=== PATIENT | female | born 2000 | race Two or more races ===

== ENCOUNTER 2025-04-13 11:24 | Outpatient (AMB) | payer MEDICAID, SELFPAY ==
[2025-04-13 11:46] VITALS: BP 136/97; PULSE 82; RESP 18; TEMP 36.7; O2SAT 98; BMI 30.7
--- NOTE | 2025-04-13 11:46 | OBCLNT_ITS ---
Vital Signs 04/13/25 11:46 Height 1.65 m Height Method Stated Weight 83.688 kg Weight Measurement Method Standing Scale BMI 30.7 BP 136/97 H Blood Pressure Source Automatic Cuff Blood Pressure Location Right Upper Arm Position Sitting Respiration 18 Pulse 82 Pulse Source Monitor Temp 98.0 F Temp Source Temporal Artery Scan Pulse Oximetry (%) 98 Oxygen Delivery Method Room Air Allergies/Home Meds Allergies & Medications Allergies No Known Allergies Allergy (Verified 04/13/25 15:02) Medication Reconciliation Unobtainable 04/13/25 [History Confirmed 04/13/25] Intake Visit Data Collection New Patient or Established: New Patient (never been to [facility]) Reason for Visit:: OBI Seen by Clinical Staff ONLY (RN/MA): No Admitting Counselor Required: No Do You Feel Safe at Home: Yes Authorities Contacted: N/A PCP or OBGYN visit in last 3 months: No Hx Now: Yes Are you currently on any form of Control: No Pain Present Currently: Yes Pain Location: Abdomen Pain Scale Used: Tucker-Ibarra/Numerical Pain scale:: 5 Smoking Status Smoking Status: Never smoker Questionnaires Covid-19 Vaccine Questionnaire Has patient been vacinated for Covid-19 Have you been vacinated for Covid-19: No PHQ-9 PHQ-2 Over the last 2 weeks, how often have you been bothered by any of the following problems? 1. Little interest or pleasure in doing things: not at all 2. Feeling down, depressed, or hopeless: not at all Total score: 0 PHQ-9 3. Trouble falling or staying asleep, or sleeping too much: Not at all 4. Feeling tired or having little energy: Not at all 5. Poor appetite or overeating: Not at all 6. Feeling bad about yourself - or that you are a failure or have let yourself or your family down: Not at all 7. Trouble concentrating on things, such as reading the newspaper or watching television: Not at all 8. Moving or speaking so slowly that other people could have noticed? - Or the opposite - being so fidgety or restless that you have been moving around a lot more than usual: not at all 9. Thoughts that you would be better off or of hurting yourself in some way: Not at all Total score: 0 If you checked off any problems, how difficult have these problems made it for you to do your work, take care of things at home, or get along with other people?: not difficult at all Source: Developed by Drs. Vinicius Kaufman, Deb Head, Dustin Yancey and colleagues, with an educational mamadou from [employer]. Depression screen completed yes Social History Living Situation History Marital Status: Life Partner Lives With: Family Housing: House Tobacco History Smoking Status: Never smoker Second Hand Smoke Exposure: No Alcohol History Alcohol Intake: Never Domestic Abuse History Do You Feel Safe at Home: Yes History of Present Illness HPI Narrative Patient is a [id number] presenting for her first obstetric visit at this clinic. Her estimated due date is November 20, 2025, based on a last menstrual period of February 13, 2025. She has a history of high blood pressure and pre-eclampsia during her previous in 2022, which puts her at high risk for recurrence. Patient initially sought care at [facility] where she was seen by a landscape supervisor. She experienced body pains and underwent a stomach scan. Last week, she had an ultrasound where a heartbeat was reportedly detected. However, she visited an emergency room last month around March 28 due to spotting, where no heartbeat was detected, possibly due to early gestation. Patient reports experiencing spotting but denies any current cramping or significant bleeding. She mentions taking ibuprofen for pain relief, which she has now been advised against. She has been recommended to use Tylenol for pain during . Patient's obstetric history includes a full-term delivery in 2022 at [facility], and she breastfed. She reports having high blood pressure during a recent check-up, necessitating additional monitoring and testing throughout this . Review of systems is positive for body pains and spotting. - Abdomen: Ultrasound examination of the uterus performed. The entire uterus visualized. Inner part of uterus examined. No sac observed within the uterus. Exam General General Appearance: alert, in no apparent distress and healthy appearing Head Head exam: atraumatic Neck Neck exam: Present normal inspection and trachea midline Chest Chest inspection: Present normal inspection and symmetric chest wall rise External exam: Present normal external exam; Absent tenderness Neuro Neurological exam: Present oriented X3 Psych Psychiatric exam: Present normal affect and normal mood Office Procedures OB Clinic LOC & Office Proc's Nursing/Assessment Patient Status: Established Patient OB Clinic Nursing Assessment: Medication Reconciliation, Update PMH in EMR and Vital Signs OB Clinic Coordination of Care: Complex Care and Chronic Disease 1-5, Consent,records obtained, informed consent, Education Simp Pt/Fam and Staff clarify orders Special Needs: Heart tones Established Patient Charge Established Patient Point Assignment: 115 Established Patient Point Charge: EP Level 3 (80-115) Assessment & Plan Diagnosis / Problem List (1) of unknown anatomic location: Status: Acute Plan of Uncertain Viability: - Patient reports last menstrual period on February 13, 2025, with estimated due date of November 20, 2025. - No gestational sac visualized on bedside ultrasound today, despite reported heartbeat last week. - Patient reports spotting. - Order formal ultrasound in radiology department. - Obtain quantitative beta-hCG. - Schedule follow-up appointment to review results and determine next steps. History of Hypertension in : - Patient reports history of hypertension during previous in 2022. - Mentions recent high blood pressure readings at a previous visit. - Include pre-eclampsia panel with initial labs. - Monitor blood pressure and labs monthly throughout . - Educate patient on signs and symptoms of pre-eclampsia. Medication Management: - Advised against using ibuprofen during . - Discontinue ibuprofen. - Recommend acetaminophen for pain relief as needed. - Educate patient on safe medication use during .
== END 2025-04-13 12:04 | disposition home or self-care (01) ==
LOC: HODSOBC 11:24
PROVIDERS: Supervising Provider Obstetrics & Gynecology; Visit Provider Obstetrics & Gynecology
DX: O09.299 Supervision of pregnancy with other poor reproductive or obstetric history, unspecified trimester (principal); O09.899 Supervision of other high risk pregnancies, unspecified trimester; O36.80X0 Pregnancy with inconclusive fetal viability, not applicable or unspecified; Z3A.00 Weeks of gestation of pregnancy not specified; Z87.59 Personal history of other complications of pregnancy, childbirth and the puerperium
CPT/HCPCS: 99213; G0463

== ENCOUNTER 2025-04-22 09:14 | Outpatient (AMB) | payer MEDICAID, SELFPAY ==
[2025-04-22 09:27] VITALS: BP 124/84; PULSE 82; RESP 16; TEMP 36.6; O2SAT 98; BMI 30.8
--- NOTE | 2025-04-22 09:27 | AMB.OBVISIT ---
Vital Signs 04/22/25 09:27 Height 1.65 m Height Method Stated Weight 83.971 kg Weight Measurement Method Standing Scale BMI 30.8 BP 124/84 Blood Pressure Source Automatic Cuff Blood Pressure Location Left Upper Arm Position Sitting Respiration 16 Pulse 82 Pulse Source Monitor Temp 97.8 F Temp Source Oral Pulse Oximetry (%) 98 Oxygen Delivery Method Room Air Allergies/Home Meds Allergies & Medications Allergies No Known Allergies Allergy (Verified 04/22/25 09:28) Medication Reconciliation Unobtainable 04/13/25 [History Confirmed 04/22/25] Intake Visit Data Collection New Patient or Established: Established Patient (seen at [facility] within 3 years) Reason for Visit:: CARE Seen by Clinical Staff ONLY (RN/MA): No Patient Transportation Driver Required: No Do You Feel Safe at Home: Yes Authorities Contacted: N/A PCP or OBGYN visit in last 3 months: Yes Hx Now: Yes Are you currently on any form of Control: No Pain Present Currently: No Pain Scale Used: Tucker-Ibarra/Numerical Pain scale:: 0 Smoking Status Smoking Status: Never smoker Questionnaires Covid-19 Vaccine Questionnaire Has patient been vacinated for Covid-19 Have you been vacinated for Covid-19: Yes PHQ-9 PHQ-2 Over the last 2 weeks, how often have you been bothered by any of the following problems? 1. Little interest or pleasure in doing things: not at all 2. Feeling down, depressed, or hopeless: not at all Total score: 0 PHQ-9 3. Trouble falling or staying asleep, or sleeping too much: Not at all 4. Feeling tired or having little energy: Not at all 5. Poor appetite or overeating: Not at all 6. Feeling bad about yourself - or that you are a failure or have let yourself or your family down: Not at all 7. Trouble concentrating on things, such as reading the newspaper or watching television: Not at all 8. Moving or speaking so slowly that other people could have noticed? - Or the opposite - being so fidgety or restless that you have been moving around a lot more than usual: not at all 9. Thoughts that you would be better off or of hurting yourself in some way: Not at all Total score: 0 Source: Developed by Drs. Vinicius Kaufman, Deb Head, Dustin Yancey and colleagues, with an educational mamadou from [employer]. Depression screen completed yes Social History Living Situation History Lives With: Family Housing: House Tobacco History Smoking Status: Never smoker Second Hand Smoke Exposure: No Alcohol History Alcohol Intake: Never Domestic Abuse History Do You Feel Safe at Home: Yes History of Present Illness HPI Narrative Patient is a 24-year-old 2 para 1 here for follow-up threatened SAB. Patient denies bleeding at this time. She reports she had some spotting once during the and now. Her last period February 13, 2025. Estimated due date November 22, 2025. Patient feels about 10 weeks size. She denies social habits. Denies surgery. Denies chronic illness. History of chronic hypertension. No medication. Review of Systems Review of Systems Systems Reviewed: All systems reviewed, normal except as documented Care CJ Calculator Estimated Delivery Date Method Current WG Current Estimate 11/20/25 LMP (Certain) 9w 5d Results Objective Laboratory: HCG 04/07/25:hc. o+,ABS-, RPR;;NR, RUB iMM, hbsag-,hiv-,hc-, gc/ct-, /, ut-a1C:5.0 Imaging: +fht WITH DOPPLER: 156, OFFICE SONO: 10 WEEK FETUS, + FHT ON SONO, +fm Exam Narrative Physical exam: + fht 150. IUP 10wk General Limitations: no limitations General Appearance: alert, in no apparent distress, comfortable, cooperative, healthy appearing, well developed and well groomed Head Head exam: atraumatic, normocephalic and normal inspection Neck Neck exam: Present normal inspection, full ROM and trachea midline Resp Respiratory exam: Present normal lung sounds bilaterally Card Cardiovascular exam: Present regular rate, normal rhythm and normal heart sounds Abdominal Abdominal exam: Present soft and normal bowel sounds Psych Psychiatric exam: Present normal affect and normal mood Office Procedures OB Clinic LOC & Office Proc's Nursing/Assessment Patient Status: Established Patient OB Clinic Nursing Assessment: Medication Reconciliation, Update PMH in EMR and Vital Signs OB Clinic Coordination of Care: Complex Care and Chronic Disease 1-5, Consent,records obtained, informed consent, Education Simp Pt/Fam, Lab and Imaging orders, Results/Orders obtained and Staff clarify orders Special Needs: Heart tones Established Patient Charge Established Patient Point Assignment: 135 Established Patient Point Charge: EP Level 4 (120-155) Assessment & Plan Diagnosis / Problem List (1) Encounter for supervision of high risk in first trimester, antepartum: Status: Acute Plan NIPT and carrier screen today. Discussed SAB precautions. Schedule M appointment for anatomy scan. Discussed danger signs symptoms and ER precautions and return in 4 weeks for OBI Additional Plan Follow Up: 4 Weeks (obi)
== END 2025-04-22 10:13 | disposition home or self-care (01) ==
LOC: HODSOBC 09:14
PROVIDERS: Supervising Provider Advanced Practice Midwife; Visit Provider Advanced Practice Midwife
DX: O09.891 Supervision of other high risk pregnancies, first trimester (principal); O10.911 Unspecified pre-existing hypertension complicating pregnancy, first trimester; Z3A.10 10 weeks gestation of pregnancy
CPT/HCPCS: 99214; G0463

== ENCOUNTER 2025-05-03 10:25 | Outpatient (AMB) | payer MEDICAID, SELFPAY ==
--- NOTE | 2025-05-03 10:34 | OBCLNT_ITS ---
Vital Signs 05/03/25 10:38 Height 1.65 m Height Method Stated Weight 83.971 kg Weight Measurement Method Standing Scale BMI 30.8 BP 130/89 H Blood Pressure Source Automatic Cuff Blood Pressure Location Left Upper Arm Position Sitting Respiration 16 Pulse 88 Pulse Source Monitor Temp 98.2 F Temp Source Oral Pulse Oximetry (%) 98 Oxygen Delivery Method Room Air Allergies/Home Meds Allergies & Medications Allergies No Known Allergies Allergy (Verified 05/03/25 10:39) Medication Reconciliation Unobtainable 04/13/25 [History Confirmed 05/03/25] Intake Visit Data Collection New Patient or Established: Established Patient (seen at [facility] within 3 years) Reason for Visit:: CARE Seen by Clinical Staff ONLY (RN/MA): No Boiler Shop 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 1. Little interest or pleasure in doing things: not at all 2. Feeling down, depressed, or hopeless: not at all Total score: 0 PHQ-9 3. Trouble falling or staying asleep, or sleeping too much: Not at all 4. Feeling tired or having little energy: Not at all 5. Poor appetite or overeating: Not at all 6. Feeling bad about yourself - or that you are a failure or have let yourself or your family down: Not at all 7. Trouble concentrating on things, such as reading the newspaper or watching television: Not at all 8. Moving or speaking so slowly that other people could have noticed? - Or the opposite - being so fidgety or restless that you have been moving around a lot more than usual: not at all 9. Thoughts that you would be better off or of hurting yourself in some way: Not at all Total score: 0 Source: Developed by Drs. Vinicius Kaufman, Deb Head, Dustin Yancey and colleagues, with an educational mamadou from [employer]. Depression screen completed yes Social History Living Situation History Lives With: Family Housing: House Tobacco History Smoking Status: Never smoker Second Hand Smoke Exposure: No Alcohol History Alcohol Intake: Never Domestic Abuse History Do You Feel Safe at Home: Yes Care OB Visit Log OB Flowsheet Initial Weight: Not Recorded Date -?-?-?-?-?-?-?-?-?-?-?-?- EGA Weight BP Alb Glu CTX Pres Fundal ht FHR Mov Dilation Station Effacement Hx Notes Visit Note 05/03/25 -?-?-?-?-?-?-?-?-?-?-?-?- 11w 2d 83.971 kg 130/89 absent unknown 12 145 absent This is a 24-year-old 2 para 1 for ER follow-up. Patient was seen at [facility] for early vaginal bleeding. She was told she had a subchorionic hemorrhage patient denies any bleeding at this time. The report for ultrasound and visit are still pending. Denies cramps denies leaking fluid. Patient did not get her labs as ordered. NIPT and carrier screen today. Discussed SAB precautions and rest. Schedule appointment at [facility] for anatomy scan. Continue prenatals. Comfort measures for nausea. Return in 4 weeks for recheck CJ Calculator Estimated Delivery Date Method Current WG Current Estimate 11/20/25 LMP (Certain) 11w 2d Notes Visit Date: 05/03/25 Last Updated by: Chiquita Saldana CNM 24 yo . LMP 02/13/25. EDC 11/20/25. OB panel: O+,abs-, rpr;;NR, rub imm, hbsag-,hiv-,hc-, GC/CT-, UT-,UA-, Office Procedures OB Clinic LOC & Office Proc's Nursing/Assessment Patient Status: Established Patient OB Clinic Nursing Assessment: Medication Reconciliation, Update PMH in EMR and Vital Signs OB Clinic Coordination of Care: Complex Care and Chronic Disease 1-5, Consent,records obtained, informed consent, Education Simp Pt/Fam, Lab and Imaging orders, Results/Orders obtained and Staff clarify orders Special Needs: Heart tones Established Patient Charge Established Patient Point Assignment: 135 Established Patient Point Charge: EP Level 4 (120-155) Assessment & Plan Diagnosis / Problem List (1) Encounter for supervision of high risk in first trimester, antepartum: Status: Acute Plan Reviewed OB panel. Schedule NIPT and carrier screen. Discussed SAB precautions. Rest. Increase fluids. Continue prenatals. OB sono pending. Return in 4 weeks OB check Additional Plan Follow Up: 4 Weeks (ob)
[2025-05-03 10:38] VITALS: BP 130/89; PULSE 88; RESP 16; TEMP 36.8; O2SAT 98; BMI 30.8
== END 2025-05-03 11:06 | disposition home or self-care (01) ==
LOC: HODSOBC 10:25
PROVIDERS: Supervising Provider Advanced Practice Midwife; Visit Provider Advanced Practice Midwife
DX: O09.91 Supervision of high risk pregnancy, unspecified, first trimester (principal); Z3A.11 11 weeks gestation of pregnancy
CPT/HCPCS: 99214; G0463

== ENCOUNTER 2025-05-31 08:47 | Outpatient (AMB) | payer MEDICAID, SELFPAY ==
[2025-05-31 09:01] VITALS: BP 131/87; PULSE 18; RESP 92; TEMP 36.6; O2SAT 98; BMI 30.7
--- NOTE | 2025-05-31 09:01 | OBCLNT_ITS ---
Vital Signs 05/31/25 09:01 Height 1.65 m Height Method Stated Weight 83.688 kg Weight Measurement Method Standing Scale BMI 30.7 BP 131/87 H Blood Pressure Source Automatic Cuff Blood Pressure Location Left Upper Arm Position Sitting Respiration 92 H Pulse 18 L Pulse Source Monitor Temp 97.8 F Temp Source Oral Pulse Oximetry (%) 98 Oxygen Delivery Method Room Air Allergies/Home Meds Allergies & Medications Allergies No Known Allergies Allergy (Verified 05/31/25 09:03) Medication Reconciliation Unobtainable 04/13/25 [History Confirmed 05/31/25] Intake Visit Data Collection New Patient or Established: Established Patient (seen at [facility] within 3 years) Reason for Visit:: CARE Seen by Clinical Staff ONLY (RN/MA): No Supervisor Fertilizer Processing Required: No Do You Feel Safe at Home: Yes Authorities Contacted: N/A PCP or OBGYN visit in last 3 months: Yes Hx Now: Yes Are you currently on any form of Control: No Pain Present Currently: Yes Pain Location: Abdomen (LOWER ABDOMEN) Pain Scale Used: Tucker-Ibarra/Numerical Pain scale:: 8 Smoking Status Smoking Status: Never smoker Questionnaires Covid-19 Vaccine Questionnaire Has patient been vacinated for Covid-19 Have you been vacinated for Covid-19: Yes PHQ-9 PHQ-2 Over the last 2 weeks, how often have you been bothered by any of the following problems? 1. Little interest or pleasure in doing things: not at all 2. Feeling down, depressed, or hopeless: not at all Total score: 0 PHQ-9 3. Trouble falling or staying asleep, or sleeping too much: Not at all 4. Feeling tired or having little energy: Not at all 5. Poor appetite or overeating: Not at all 6. Feeling bad about yourself - or that you are a failure or have let yourself or your family down: Not at all 7. Trouble concentrating on things, such as reading the newspaper or watching television: Not at all 8. Moving or speaking so slowly that other people could have noticed? - Or the opposite - being so fidgety or restless that you have been moving around a lot more than usual: not at all 9. Thoughts that you would be better off or of hurting yourself in some way: Not at all Total score: 0 Source: Developed by Drs. Vinicius Kaufman, Deb Head, Dustin Yancey and colleagues, with an educational mamadou from [employer]. Depression screen completed yes Social History Living Situation History Lives With: Family Housing: House Tobacco History Smoking Status: Never smoker Second Hand Smoke Exposure: No Alcohol History Alcohol Intake: Never Domestic Abuse History Do You Feel Safe at Home: Yes Care OB Visit Log OB Flowsheet Initial Weight: Not Recorded Date -?-?-?-?-?-?-?-?-?-?-?-?- EGA Weight BP Alb Glu CTX Pres Fundal ht FHR Mov Dilation Station Effacement Hx Notes Visit Note 05/03/25 -?-?-?-?-?-?-?-?-?-?-?-?- 11w 2d 83.971 kg 130/89 absent unknown 12 145 absent This is a 24-year-old 2 para 1 for ER follow-up. Patient was seen at [facility] for early vaginal bleeding. She was told she had a subchorionic hemorrhage patient denies any bleeding at this time. The report for ultrasound and visit are still pending. Denies cramps denies leaking fluid. Patient did not get her labs as ordered. NIPT and carrier screen today. Discussed SAB precautions and rest. Schedule appointment at [facility] for anatomy scan. Continue prenatals. Comfort measures for nausea. Return in 4 weeks for recheck 05/31/25 -?-?-?-?-?-?-?-?-?-?-?-?- 15w 2d 83.688 kg 131/87 occasional unknown 15 145 active No bleeding today. Denies leaking. Denies contractions. Complains of increased ligament pain. Reports slight movement. Follow-up MFM is in 4 weeks for anatomy scan. SAB precautions reviewed. No sex or heavy lifting. I filled out a form for her [employer]. aFP today. Keep follow-up appointment with [facility] for anatomy scan. Return in 4 weeks OB check CJ Calculator Estimated Delivery Date Method Current WG Current Estimate 11/20/25 LMP (Certain) 15w 2d Other Estimates 11/23/25 Ultrasound #1 14w 6d Notes Visit Date: 05/31/25 Last Updated by: Chiquita Saldana CNM NIPT/CF/SMA-. NIPT- 04/23: girl Visit Date: 05/03/25 Last Updated by: Chiquita Saldana CNM 24 yo . LMP 02/13/25. EDC 11/20/25. OB panel: O+,abs-, rpr;;NR, rub imm, hbsag-,hiv-,hc-, GC/CT-, UT-,UA-, Office Procedures OB Clinic LOC & Office Proc's Nursing/Assessment Patient Status: Established Patient OB Clinic Nursing Assessment: Medication Reconciliation, Update PMH in EMR and Vital Signs OB Clinic Coordination of Care: Complex Care and Chronic Disease 1-5, Education Complex Pt/Fam, Education Simp Pt/Fam, Lab and Imaging orders, Results/Orders obtained and Staff clarify orders Special Needs: Heart tones Established Patient Charge Established Patient Point Assignment: 150 Established Patient Point Charge: EP Level 4 (120-155) Assessment & Plan Diagnosis / Problem List (1) Encounter for supervision of high risk in second trimester, antepartum: Status: Acute Plan Discussed labs. aFP today. Keep follow-up MFM appointment for anatomy with Dr. Rivera in 4 weeks. Return in 4 weeks OB check Additional Plan Follow Up: 4 Weeks (obc)
== END 2025-05-31 09:49 | disposition home or self-care (01) ==
LOC: HODSOBC 08:47
PROVIDERS: Supervising Provider Advanced Practice Midwife; Visit Provider Advanced Practice Midwife
DX: O09.92 Supervision of high risk pregnancy, unspecified, second trimester (principal); Z3A.15 15 weeks gestation of pregnancy
CPT/HCPCS: 99214; G0463

== ENCOUNTER 2025-07-04 21:39 | Observation (INO) | payer MEDICAID, SELFPAY ==
[2025-07-04 21:55] VITALS: BP 123/84; PULSE 91; RESP 18; RESP 99; TEMP 36.9; O2SAT 98
[2025-07-04] MEDS: ACETAMINOPHEN 500 MG TABLET 1000 MG PO (23:15)
== END 2025-07-04 23:23 | disposition home or self-care (01) ==
PROVIDERS: Admitting Provider Obstetrics & Gynecology; Visit Provider Obstetrics & Gynecology
DX: O26.892 Other specified pregnancy related conditions, second trimester (principal); Z3A.20 20 weeks gestation of pregnancy; M54.9 Dorsalgia, unspecified; R10.9 Unspecified abdominal pain
CPT/HCPCS: 59899; A9270

== ENCOUNTER 2025-07-05 09:25 | Outpatient (AMB) | payer MEDICAID, SELFPAY ==
[2025-07-05 09:36] VITALS: BP 123/83; PULSE 91; RESP 18; TEMP 36.6; O2SAT 98; BMI 32.0
--- NOTE | 2025-07-05 09:36 | OBCLNT_ITS ---
Vital Signs 07/05/25 09:36 Height 1.65 m Height Method Stated Weight 87.146 kg Weight Measurement Method Standing Scale BMI 32.0 BP 123/83 Blood Pressure Source Automatic Cuff Blood Pressure Location Left Upper Arm Position Sitting Respiration 18 Pulse 91 Pulse Source Monitor Temp 97.8 F Temp Source Oral Pulse Oximetry (%) 98 Oxygen Delivery Method Room Air Allergies/Home Meds Allergies & Medications Allergies No Known Allergies Allergy (Verified 07/05/25 09:36) Medication Reconciliation vitamins no.2 162 mg-115.2 mg (106 mg)-1 mg capsule 1 cap PO QDAY vitamins 07/04/25 [History Confirmed 07/05/25] Intake Visit Data Collection New Patient or Established: Established Patient (seen at [facility] within 3 years) Reason for Visit:: CARE Seen by Clinical Staff ONLY (RN/MA): No Ancillary Specialist Required: No Do You Feel Safe at Home: Yes Authorities Contacted: N/A PCP or OBGYN visit in last 3 months: Yes Hx Now: Yes Are you currently on any form of Control: No Pain Present Currently: No Pain Scale Used: Tucker-Ibarra/Numerical Pain scale:: 0 Smoking Status Smoking Status: Never smoker Questionnaires Covid-19 Vaccine Questionnaire Has patient been vacinated for Covid-19 Have you been vacinated for Covid-19: Yes PHQ-9 PHQ-2 Over the last 2 weeks, how often have you been bothered by any of the following problems? 1. Little interest or pleasure in doing things: not at all 2. Feeling down, depressed, or hopeless: not at all Total score: 0 PHQ-9 3. Trouble falling or staying asleep, or sleeping too much: Not at all 4. Feeling tired or having little energy: Not at all 5. Poor appetite or overeating: Not at all 6. Feeling bad about yourself - or that you are a failure or have let yourself or your family down: Not at all 7. Trouble concentrating on things, such as reading the newspaper or watching television: Not at all 8. Moving or speaking so slowly that other people could have noticed? - Or the opposite - being so fidgety or restless that you have been moving around a lot more than usual: not at all 9. Thoughts that you would be better off or of hurting yourself in some way: Not at all Total score: 0 Source: Developed by Drs. Vinicius Kaufman, Deb Head, Dustin Yancey and colleagues, with an educational mamadou from [employer]. Depression screen completed yes Social History Living Situation History Lives With: Family Housing: House Tobacco History Smoking Status: Never smoker Second Hand Smoke Exposure: No Alcohol History Alcohol Intake: Never Domestic Abuse History Do You Feel Safe at Home: Yes Care OB Visit Log OB Flowsheet Initial Weight: Not Recorded Date -?-?-?-?-?-?-?-?-?-?-?-?- EGA Weight BP Alb Glu CTX Pres Fundal ht FHR Mov Dilation Station Effacement Hx Notes Visit Note 05/03/25 -?-?-?-?-?-?-?-?-?-?-?-?- 11w 2d 83.971 kg 130/89 absent unknown 12 145 absent This is a 24-year-old 2 para 1 for ER follow-up. Patient was seen at [facility] for early vaginal bleeding. She was told she had a subchorionic hemorrhage patient denies any bleeding at this time. The report for ultrasound and visit are still pending. Denies cramps denies leaking fluid. Patient did not get her labs as ordered. NIPT and carrier screen today. Discussed SAB precautions and rest. Schedule appointment at [facility] for anatomy scan. Continue prenatals. Comfort measures for nausea. Return in 4 weeks for recheck 05/31/25 -?-?-?-?-?-?-?-?-?-?-?-?- 15w 2d 83.688 kg 131/87 occasional unknown 15 145 active No bleeding today. Denies leaking. Denies contractions. Complains of increased ligament pain. Reports slight movement. Follow-up MFM is in 4 weeks for anatomy scan. SAB precautions reviewed. No sex or heavy lifting. I filled out a form for her [employer] aFP today. Keep follow-up appointment with [facility] for anatomy scan. Return in 4 weeks OB check 07/05/25 -?-?-?-?-?-?-?-?-?-?-?-?- 20w 2d 87.146 kg 123/83 absent unknown 20 146 absent No cramps. Patient was seen in labor and delivery she hit her back. No cramps or bleeding now reports light movement. Patient has MFM appointment this week. Discussed AFP. MFM appointment this week. Discussed labor precautions. Return week for OBC CJ Calculator Estimated Delivery Date Method Current WG Current Estimate 11/20/25 LMP (Certain) 20w 2d Other Estimates 11/23/25 Ultrasound #1 19w 6d Notes Visit Date: 07/05/25 Last Updated by: Chiquita Saldana CNM 07/05: AFP Visit Date: 05/31/25 Last Updated by: Chiquita Saldana CNM NIPT/CF/SMA-. NIPT- 04/23: girl Visit Date: 05/03/25 Last Updated by: Chiquita Saldana CNM 24 yo . LMP 02/13/25. EDC 11/20/25. OB panel: O+,abs-, rpr;;NR, rub imm, hbsag-,hiv-,hc-, GC/CT-, UT-,UA-, / Office Procedures OBC Clinic LOC & Office Proc's Nursing/Assessment Patient Status: Established Patient OB Clinic Nursing Assessment: Medication Reconciliation, Update PMH in EMR and Vital Signs OB Clinic Coordination of Care: Complex Care and Chronic Disease 1-5, Consent,records obtained, informed consent, Education Simp Pt/Fam, Lab and Imaging orders, Results/Orders obtained and Staff clarify orders Special Needs: Heart tones Established Patient Charge Established Patient Point Assignment: 135 Established Patient Point Charge: EP Level 4 (120-155) Assessment & Plan Diagnosis / Problem List (1) Encounter for supervision of high risk in second trimester, antepartum: Status: Acute Plan Discussed AFP. PTL precautions. Keep MFM appointment. Increase fluids. Return in 4 weeks OB check. Additional Plan Follow Up: 4 Weeks (obc)
== END 2025-07-05 09:59 | disposition home or self-care (01) ==
LOC: HODSOBC 09:25
PROVIDERS: Supervising Provider Advanced Practice Midwife; Visit Provider Advanced Practice Midwife
DX: O09.92 Supervision of high risk pregnancy, unspecified, second trimester (principal); Z3A.20 20 weeks gestation of pregnancy
CPT/HCPCS: 99214; G0463

== ENCOUNTER 2025-08-11 08:30 | Outpatient (AMB) | payer MEDICAID, SELFPAY ==
--- NOTE | 2025-08-11 08:33 | OBCLNT_ITS ---
Vital Signs 08/11/25 08:38 Height 1.65 m Height Method Stated Weight 92.646 kg Weight Measurement Method Standing Scale BMI 34.0 BP 123/84 Blood Pressure Source Automatic Cuff Blood Pressure Location Left Upper Arm Position Sitting Respiration 18 Pulse 98 Pulse Source Monitor Temp 97.5 F Temp Source Oral Pulse Oximetry (%) 97 Oxygen Delivery Method Room Air Allergies/Home Meds Allergies & Medications Allergies No Known Allergies Allergy (Verified 08/11/25 08:39) Medication Reconciliation vitamins no.2 162 mg-115.2 mg (106 mg)-1 mg capsule 1 cap PO QDAY vitamins 07/04/25 [History Confirmed 08/11/25] aspirin 81 mg tablet,delayed release (Adult Aspirin Regimen) 81 mg PO QDAY #60 tabs 08/11/25 [Rx] vits no.130-ferrous fum 27 mg iron-folic acid 800 mcg tablet ( Vitamin) 1 tab PO QDAY pregancy #60 tabs 08/11/25 [Rx] Intake Visit Data Collection New Patient or Established: Established Patient (seen at [facility] within 3 years) Reason for Visit:: CARE Do You Feel Safe at Home: Yes Authorities Contacted: N/A PCP or OBGYN visit in last 3 months: Yes Hx Now: Yes Are you currently on any form of Control: No Pain Present Currently: No Pain Scale Used: Tucker-Ibarra/Numerical Pain scale:: 0 Smoking Status Smoking Status: Never smoker Immunizations Flu Vaccine in the Last 12 Months: Yes Flu Vaccine Exclusion Criteria: Already Received Questionnaires Covid-19 Vaccine Questionnaire Has patient been vacinated for Covid-19 Have you been vacinated for Covid-19: Yes PHQ-9 PHQ-2 Over the last 2 weeks, how often have you been bothered by any of the following problems? 1. Little interest or pleasure in doing things: not at all 2. Feeling down, depressed, or hopeless: not at all Total score: 0 PHQ-9 3. Trouble falling or staying asleep, or sleeping too much: Not at all 4. Feeling tired or having little energy: Not at all 5. Poor appetite or overeating: Not at all 6. Feeling bad about yourself - or that you are a failure or have let yourself or your family down: Not at all 7. Trouble concentrating on things, such as reading the newspaper or watching television: Not at all 8. Moving or speaking so slowly that other people could have noticed? - Or the opposite - being so fidgety or restless that you have been moving around a lot more than usual: not at all 9. Thoughts that you would be better off or of hurting yourself in some way: Not at all Total score: 0 Source: Developed by Drs. Vinicius Kaufman, Deb Head, Dustin Yancey and colleagues, with an educational mamadou from [employer]. Depression screen completed yes Social History Living Situation History Lives With: Family Housing: House Tobacco History Smoking Status: Never smoker Second Hand Smoke Exposure: No Alcohol History Alcohol Intake: Never Domestic Abuse History Do You Feel Safe at Home: Yes Care OB Visit Log OB Flowsheet Initial Weight: Not Recorded Date -?-?-?-?-?-?-?-?-?-?-?-?- EGA Weight BP Alb Glu CTX Pres Fundal ht FHR Mov Dilation Station Effacement Hx Notes Visit Note 05/03/25 -?-?-?-?-?-?-?-?-?-?-?-?- 11w 2d 83.971 kg 130/89 absent unknown 12 145 absent This is a 24-year-old 2 para 1 for ER follow-up. Patient was seen at [facility] [place] for early vaginal bleeding. She was told she had a subchorionic hemorrhage patient denies any bleeding at this time. The report for ultrasound and visit are still pending. Denies cramps denies leaking fluid. Patient did not get her labs as ordered. NIPT and carrier screen today. Discussed SAB precautions and rest. Schedule appointment at [facility] for anatomy scan. Continue prenatals. Comfort measures for nausea. Return in 4 weeks for recheck 05/31/25 -?-?-?-?-?-?-?-?-?-?-?-?- 15w 2d 83.688 kg 131/87 occasional unknown 15 145 active No bleeding today. Denies leaking. Denies contractions. Complains of increased ligament pain. Reports slight movement. Follow-up [facility] is in 4 weeks for anatomy scan. SAB precautions reviewed. No sex or heavy lifting. I filled out a form for her [employer] aFP today. Keep follow-up appointment with MFM for anatomy scan. Return in 4 weeks OB check 07/05/25 -?-?-?-?-?-?-?-?-?-?-?-?- 20w 2d 87.146 kg 123/83 absent unknown 20 146 absent No cramps. Patient was seen in labor and delivery she hit her back. No cramps or bleeding now reports light movement. Patient has MFM appointment this week. Discussed AFP. MFM appointment this week. Discussed labor precautions. Return week for OBC 08/11/25 -?-?-?-?-?-?-?-?-?-?-?-?- 25w 4d 92.646 kg 123/84 absent unknown 25 145 absent No contractions. Reports movement. Denies leaking, bleeding, contractions. Patient has concerns about PIH. With her last she was induced at 39 weeks because of PIH symptoms. P renatal vitamins. Low-dose baby aspirin. Third trimester labs ordered along with TSH, PT PTT and CMP and a 24-hour protein. We discussed signs and symptoms of preeclampsia and I advised patient to check her blood pressure twice a day at home. Patient has follow-up ultrasound in 4 weeks with MFM because needed given good visualization of the baby's heart CJ Calculator Estimated Delivery Date Method Current WG Current Estimate 11/20/25 LMP (Certain) 25w 4d Other Estimates 11/23/25 Ultrasound #1 25w 1d 11/20/25 Ultrasound #2 25w 4d 11/20/25 Manual 25w 4d final cj Notes Visit Date: 08/11/25 Last Updated by: Chiquita Saldana CNM 07/16/25: IUP 21w6, Visit Date: 07/05/25 Last Updated by: Chiquita Saldana CNM 07/05: AFP Visit Date: 05/31/25 Last Updated by: Chiquita Saldana CNM NIPT/CF/SMA-. NIPT- 04/23: girl Visit Date: 05/03/25 Last Updated by: Chiquita Saldana CNM 24 yo . LMP 02/13/25. EDC 11/20/25. OB panel: O+,abs-, rpr;;NR, rub imm, hbsag-,hiv-,hc-, GC/CT-, UT-,UA-, Office Procedures OBC Clinic LOC & Office Proc's Nursing/Assessment Patient Status: Established Patient OB Clinic Nursing Assessment: Medication Reconciliation, Update PMH in EMR and Vital Signs OB Clinic Coordination of Care: Complex Care and Chronic Disease 1-5, Consent,records obtained, informed consent, Education Simp Pt/Fam, 1 Ins Authorization, Lab and Imaging orders, Results/Orders obtained and Staff clarify orders Special Needs: Heart tones Established Patient Charge Established Patient Point Assignment: 150 Established Patient Point Charge: EP Level 4 (120-155) Assessment & Plan Diagnosis / Problem List (1) Encounter for supervision of high risk in second trimester, antepartum: Status: Acute Plan Start low-dose baby aspirin. Refill prenatals. Discussed PIH signs and symptoms. Discussed diet and weight loss. Avoid salt and sugary foods. Follow-up with MFM in 4 weeks for follow-up sono.. Third trimester labs today with TSH. 24-hour protein. And CMP and PIH panel. Return in 3 weeks for OB check Additional Plan Follow Up: 4 Weeks (obc)
[2025-08-11 08:38] VITALS: BP 123/84; PULSE 98; RESP 18; TEMP 36.4; O2SAT 97; BMI 34.0
== END 2025-08-11 09:38 | disposition home or self-care (01) ==
LOC: HODSOBC 08:30
PROVIDERS: Supervising Provider Advanced Practice Midwife; Visit Provider Advanced Practice Midwife
DX: O09.292 Supervision of pregnancy with other poor reproductive or obstetric history, second trimester (principal); Z3A.25 25 weeks gestation of pregnancy; Z87.59 Personal history of other complications of pregnancy, childbirth and the puerperium
CPT/HCPCS: 99214; G0463